=== PATIENT | male | born 1955 | race Two or more races ===

== ENCOUNTER → 2017-07-28 | Outpatient (CLI) | payer OTHER ==
[~2017-07-28] MED LIST: ALBUAER3 IN; EST0625T PO; FLUT250M2 IN; LEVO500T21 PO
== END | disposition home or self-care (01) ==
LOC: CT 10:45
DX: R91.1 Solitary pulmonary nodule (principal); E78.00 Pure hypercholesterolemia, unspecified
CPT/HCPCS: 71250

== ENCOUNTER 2020-03-19 16:56 | Emergency (ER) | payer OTHER ==
[~2020-03-19] VITALS: Ht 182.9 cm; Wt 80.7 kg
[2020-03-19 16:59] VITALS: BP 128/84
== END 2020-03-19 17:57 | disposition home or self-care (01) ==
LOC: EDUNIT# 16:56 → EEVIPCON 16:56 → ER 16:56 → EDBD 16:56 → ER 17:57
DX: J06.9 Acute upper respiratory infection, unspecified (principal); J45.909 Unspecified asthma, uncomplicated; E78.5 Hyperlipidemia, unspecified
CPT/HCPCS: 71045; 93005; 99283; J7030

== ENCOUNTER 2020-03-20 22:16 | Inpatient (IN) | payer OTHER ==
[~2020-03-20] VITALS: Ht 182.9 cm; Wt 87.0 kg
[2020-03-20] MEDS ORDERED: IPRATROPIUM BROM 0.5 MG/2.5ML INH SOL NEB ONE (23:00)
[2020-03-20] MEDS ORDERED: ALBUTEROL SULF 2.5 MG/0.5ML(0.5%) NEB SOLN NEB ONE (23:00)
[2020-03-20 23:06] LABS: Hematocrit 39.2 % (41.0-53.0); Hemoglobin 13.4 g/dL (13.5-17.5); Mean Corpuscular Hemoglobin 31.6 pg (28.0-32.0); Mean Corpuscular Volume 92.7 fL (80.0-100.0); Platelet Count (auto) 312 10^3/uL (140-450); Red Blood Cells 4.23 10^6/uL (4.5-5.90); Red Cell Distribution Width 12.8 % (11.8-14.3); White Blood Cell 6.5 10^3/uL (4.4-10.8)
[2020-03-20 23:09] LABS: Basophils % (manual) 0 (0.0-2.0); Blast Cells 0; Metamyelocytes % 0; Myelocytes % 0; Promyelocytes % 0; Reactive Lymphocytes 0
[2020-03-20 23:19] LABS: Albumin 3.5 g/dL (3.4-5.0); Anion Gap 5 (5-15); Blood Urea Nitrogen 10 mg/dL (7-18); Calcium 9.1 mg/dL (8.5-10.1); Carbon Dioxide 27 mmol/L (21-32); Chloride 105 mmol/L (98-107); Glucose 113 mg/dL (74-106); Potassium 4.3 mmol/L (3.5-5.1); Sodium 137 mmol/L (136-145)
[2020-03-20 23:31] LABS: Alanine Aminotransferase 16 U/L (16-61); Alkaline Phosphatase 47 U/L (45-117); Aspartate Aminotransferase 19 U/L (15-37); BUN/Creatinine Ratio 9.1; Bilirubin, Total 0.9 mg/dL (0.2-1.0); GFR African American 87 mL/min; GFR Non-African American 72 mL/min
[2020-03-20 23:37] LABS: INR 1.05 (0.9-1.15); Partial Thromboplastin Time 28.2 sec (23.0-31.2)
[2020-03-20 23:46] LABS: Band Neutrophils % (manual) 1; Eosinophils % (manual) 16 (0-7); Lymphocytes % (manual) 17 (10.0-50.0); Monocytes % (manual) 3 (0-12)
[2020-03-21] MEDS ORDERED: MORPHINE SULF INJ 2 MG/ML SYRINGE 1ML IV PRN (03:45)
[2020-03-21] MEDS ORDERED: NITROGLYCERIN 0.4 MG SL TAB SL PRN (03:45)
[2020-03-21] MEDS ORDERED: ALBUTEROL SULF HFA 90MCG INH 200DOSE IN PRN (03:45)
[2020-03-21] MEDS: AZITHROMYCIN 250 MG TAB PO SCH (04:43)
[2020-03-21] MEDS: cefTRIAXone 1GM/50ML D5W 50 ML IV SCH (04:43)
[2020-03-21] MEDS: methylPREDNISolone SOD SUCC 125 MG/2 ML VL IV SCH ×2 (04:43→22:00)
[2020-03-21] MEDS ORDERED: ALBUTEROL SULF 2.5 MG/0.5ML(0.5%) NEB SOLN NEB ONE (05:00)
[2020-03-21] MEDS: MONTELUKAST SODIUM 10 MG TAB PO SCH (10:37)
[2020-03-21] MEDS: LORATADINE 10 MG TAB PO SCH (10:37)
[2020-03-21] MEDS: FLUTICASONE PROP NASAL SPR 0.05 % (50MCG) 16GM EACHNOSTRI SCH (12:11)
[2020-03-21] MEDS: ALBUTEROL SULF 2.5 MG/0.5ML(0.5%) NEB SOLN NEB SCH ×2 (18:00→19:08)
[2020-03-21] MEDS: IPRATROPIUM BROM 0.5 MG/2.5ML INH SOL NEB SCH ×2 (18:00→19:08)
[2020-03-21] MEDS: BUDESONIDE (INHALATION) 0.5 MG/2 ML NEB NEB SCH (19:08)
[2020-03-22] MEDS: BUDESONIDE (INHALATION) 0.5 MG/2 ML NEB NEB SCH ×2 (07:29→18:55)
[2020-03-22] MEDS: IPRATROPIUM BROM 0.5 MG/2.5ML INH SOL NEB SCH ×3 (07:29→18:55)
[2020-03-22] MEDS: ALBUTEROL SULF 2.5 MG/0.5ML(0.5%) NEB SOLN NEB SCH ×3 (07:29→18:55)
[2020-03-22] MEDS: methylPREDNISolone SOD SUCC 125 MG/2 ML VL IV SCH ×2 (13:25→23:49)
[2020-03-22] MEDS: MONTELUKAST SODIUM 10 MG TAB PO SCH (13:25)
[2020-03-22] MEDS: cefTRIAXone 1GM/50ML D5W 50 ML IV SCH (13:25)
[2020-03-22] MEDS: FLUTICASONE PROP NASAL SPR 0.05 % (50MCG) 16GM EACHNOSTRI SCH (13:25)
[2020-03-22] MEDS: LORATADINE 10 MG TAB PO SCH (13:25)
[2020-03-22] MEDS: AZITHROMYCIN 250 MG TAB PO SCH (13:25)
[2020-03-22] MEDS: ENOXAPARIN SOD 40 MG/0.4 ML SYRINGE SC SCH (13:26)
[2020-03-22 23:05] VITALS: BP 127/85
[2020-03-23 05:00] VITALS: BP 107/58
[2020-03-23] MEDS: ALBUTEROL SULF 2.5 MG/0.5ML(0.5%) NEB SOLN NEB SCH ×3 (07:59→19:38)
[2020-03-23] MEDS: BUDESONIDE (INHALATION) 0.5 MG/2 ML NEB NEB SCH ×2 (07:59→19:38)
[2020-03-23] MEDS: IPRATROPIUM BROM 0.5 MG/2.5ML INH SOL NEB SCH ×3 (07:59→19:38)
[2020-03-23 08:30] VITALS: BP 93/73
[2020-03-23 09:00] VITALS: BP 93/73
[2020-03-23] MEDS: FLUTICASONE PROP NASAL SPR 0.05 % (50MCG) 16GM EACHNOSTRI SCH (09:52)
[2020-03-23] MEDS: ENOXAPARIN SOD 40 MG/0.4 ML SYRINGE SC SCH (09:53)
[2020-03-23] MEDS: cefTRIAXone 1GM/50ML D5W 50 ML IV SCH (09:53)
[2020-03-23] MEDS: LORATADINE 10 MG TAB PO SCH (09:53)
[2020-03-23] MEDS: methylPREDNISolone SOD SUCC 125 MG/2 ML VL IV SCH (09:53)
[2020-03-23] MEDS: AZITHROMYCIN 250 MG TAB PO SCH (09:53)
[2020-03-23] MEDS: MONTELUKAST SODIUM 10 MG TAB PO SCH (09:54)
[2020-03-23 12:00] VITALS: BP 111/76
[2020-03-23 16:00] VITALS: BP 126/71
[2020-03-23] MEDS: methylPREDNISolone SOD SUCC 40 MG/ML VL IV SCH (21:55)
[2020-03-23 22:00] VITALS: BP 120/74
[2020-03-24 05:00] VITALS: BP 99/65
[2020-03-24] MEDS: BUDESONIDE (INHALATION) 0.5 MG/2 ML NEB NEB SCH ×2 (07:05→19:13)
[2020-03-24] MEDS: IPRATROPIUM BROM 0.5 MG/2.5ML INH SOL NEB SCH ×3 (07:05→19:13)
[2020-03-24] MEDS: ALBUTEROL SULF 2.5 MG/0.5ML(0.5%) NEB SOLN NEB SCH ×3 (07:05→19:13)
[2020-03-24 08:00] VITALS: BP 120/72
[2020-03-24] MEDS: cefTRIAXone 1GM/50ML D5W 50 ML IV SCH (10:23)
[2020-03-24] MEDS: methylPREDNISolone SOD SUCC 40 MG/ML VL IV SCH ×2 (10:24→21:49)
[2020-03-24] MEDS: FLUTICASONE PROP NASAL SPR 0.05 % (50MCG) 16GM EACHNOSTRI SCH (10:24)
[2020-03-24] MEDS: ENOXAPARIN SOD 40 MG/0.4 ML SYRINGE SC SCH (10:24)
[2020-03-24] MEDS: LORATADINE 10 MG TAB PO SCH (10:24)
[2020-03-24] MEDS: AZITHROMYCIN 250 MG TAB PO SCH (10:24)
[2020-03-24] MEDS: MONTELUKAST SODIUM 10 MG TAB PO SCH (10:24)
[2020-03-24 16:00] VITALS: BP 125/73
[2020-03-24 21:00] VITALS: BP 114/68
[2020-03-25] VITALS: BP 114/68
[2020-03-25 05:00] VITALS: BP 133/77
[2020-03-25] MEDS: ALBUTEROL SULF 2.5 MG/0.5ML(0.5%) NEB SOLN NEB SCH ×3 (07:02→19:28)
[2020-03-25] MEDS: BUDESONIDE (INHALATION) 0.5 MG/2 ML NEB NEB SCH ×2 (07:02→19:28)
[2020-03-25] MEDS: IPRATROPIUM BROM 0.5 MG/2.5ML INH SOL NEB SCH ×3 (07:02→18:00)
[2020-03-25 08:00] VITALS: BP 111/71
[2020-03-25] MEDS: FLUTICASONE PROP NASAL SPR 0.05 % (50MCG) 16GM EACHNOSTRI SCH (09:38)
[2020-03-25] MEDS: LORATADINE 10 MG TAB PO SCH (09:38)
[2020-03-25] MEDS: cefTRIAXone 1GM/50ML D5W 50 ML IV SCH (09:39)
[2020-03-25] MEDS: methylPREDNISolone SOD SUCC 40 MG/ML VL IV SCH ×2 (09:39→21:44)
[2020-03-25] MEDS: ENOXAPARIN SOD 40 MG/0.4 ML SYRINGE SC SCH (09:39)
[2020-03-25] MEDS: AZITHROMYCIN 250 MG TAB PO SCH (09:39)
[2020-03-25] MEDS: MONTELUKAST SODIUM 10 MG TAB PO SCH (09:40)
[2020-03-25 16:00] VITALS: BP 109/70
[2020-03-25 22:00] VITALS: BP 129/79
[2020-03-26] VITALS: BP 129/79
[2020-03-26 05:00] VITALS: BP 112/74
[2020-03-26] MEDS: BUDESONIDE (INHALATION) 0.5 MG/2 ML NEB NEB SCH (06:15)
[2020-03-26] MEDS: IPRATROPIUM BROM 0.5 MG/2.5ML INH SOL NEB SCH ×2 (06:15→12:00)
[2020-03-26] MEDS: ALBUTEROL SULF 2.5 MG/0.5ML(0.5%) NEB SOLN NEB SCH ×2 (06:15→12:00)
[2020-03-26 08:00] VITALS: BP 111/69
[2020-03-26] MEDS: FLUTICASONE PROP NASAL SPR 0.05 % (50MCG) 16GM EACHNOSTRI SCH (10:24)
[2020-03-26] MEDS: methylPREDNISolone SOD SUCC 40 MG/ML VL IV SCH (10:25)
[2020-03-26] MEDS: MONTELUKAST SODIUM 10 MG TAB PO SCH (10:25)
[2020-03-26] MEDS: cefTRIAXone 1GM/50ML D5W 50 ML IV SCH (10:25)
[2020-03-26] MEDS: LORATADINE 10 MG TAB PO SCH (10:25)
[2020-03-26] MEDS: AZITHROMYCIN 250 MG TAB PO SCH (10:26)
[2020-03-26] MEDS: ENOXAPARIN SOD 40 MG/0.4 ML SYRINGE SC SCH (10:26)
[2020-03-26] MEDS ORDERED: PRED20TA2 PO ×2 (13:20→13:23)
[2020-03-26 16:00] VITALS: BP 125/72
== END 2020-03-26 17:56 | DRG 189 ==
LOC: ER 22:16 → EEVIPCON 22:16 → EDBD 22:16 → EDSEX 22:16 → OVERFLOW 03-21 03:40 → CENTRAL 03-22 23:05
PROVIDERS: ADMIT Internal Medicine; ATTEND Internal Medicine
DX: J96.01 Acute respiratory failure with hypoxia (principal); J45.902 Unspecified asthma with status asthmaticus; Z20.822 Contact with and (suspected) exposure to COVID-19; Z88.6 Allergy status to analgesic agent; Z91.041 Radiographic dye allergy status; Z88.1 Allergy status to other antibiotic agents
CPT/HCPCS: 36415; 71045; 71046; 80053; 83880; 84484; 85007; 85027; 85379; 85610; 85730; 87081; 87426; 93005; 94640; 94644; G0378; J0696